=== PATIENT | female | born 1985 | race Hispanic/Latino ===

== ENCOUNTER 2019-05-18 13:40 | Emergency (ER) | payer BC, OTHER ==
--- NOTE | 2019-05-18 17:13 | EDPHYS ---
Physician Documentation [facility] Name: Mattie Spencer Age: 33 yrs Sex: Female : 1985 Arrival Date: 05/18/2019 Time: 13:42 Bed 13 Private MD: ED Physician Mateo Harrington HPI: 05/18 15:29 This 33 yrs old Female presents to ER via Wheelchair with complaints of Needs jm Urinary Catheter Replacement. 15:29 The patient presents with needs urinary catheter. jmm 15:29 Onset: The symptoms/episode began/occurred yesterday. jmm 15:29 Associated signs and symptoms: Pertinent negatives: fever, abdominal pain. This is a 33 jmm year old female that presents to the ED in need of a sesay catheter. Family states the patient pulled out the catheter last night. Denies abdominal pain, bleeding, or vomiting. . 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 - Ebola Screening: : Patient denies travel to an Ebola-affected area in the 21 days before illness onset. - Social history:: Smoking status: Patient/guardian denies using tobacco. ROS: 15:29 Constitutional: Negative for fever, chills, and weight loss, Cardiovascular: Negative jmm for chest pain, palpitations, and edema, Respiratory: Negative for shortness of breath, cough, wheezing, and pleuritic chest pain, Abdomen/GI: Negative for abdominal pain, nausea, vomiting, diarrhea, and constipation. 15:29 All other systems are negative. Exam: 15:29 Constitutional: This is a well developed, well nourished patient who is awake, alert, jmm and in no acute distress. Chest/axilla: Normal chest wall appearance and motion. Cardiovascular: Regular rate and rhythm. No edema appreciated Respiratory: Normal respirations, no respiratory distress appreciated Abdomen/GI: Non distended, soft 15:29 Head/Face: atraumatic. Eyes: EOMI, no conjunctival erythema appreciated ENT: Moist Mucus Membranes Neck: Trachea midline, Supple Back: Normal ROM Skin: General appearance color normal MS/ Extremity: Moves all extremities, no obvious deformities appreciated, no edema noted to the lower extremities Psych: Behavior is normal, Mood is normal, Patient is cooperative and pleasant Vital Signs: 14:25 BP 134 / 84; Pulse 66; Resp 18; Temp 98.5; Pulse Ox 96% on R/A; Weight 90.72 kg (R); aj1 Height 5 ft. 2 in. (157.48 cm) (R); Pain 0/10; 17:18 BP 137 / 78; Pulse 72; Resp 18; Temp 98.0; Pulse Ox 99% on R/A; ph 14:25 Body Mass Index 36.58 (90.72 kg, 157.48 cm) [facility] MDM: 15:29 Patient medically screened. [facility] 17:10 Data reviewed: vital signs, nurses notes. Counseling: I had a detailed discussion with dannie the patient and/or guardian regarding: the historical points, exam findings, and any diagnostic results supporting the discharge/admit diagnosis, the need for outpatient follow up, to return to the emergency department if symptoms worsen or persist or if there are any questions or concerns that arise at home. ED course: SESAY REPLACED BY RN. . 05/18 15:31 Order name: Sesay Leg Bag; Complete Time: 17:09 [facility] 05/18 15:31 Order name: Sesay; Complete Time: 17:09 [facility] Administered Medications: No medications were administered Disposition: 05/18/19 17:12 Discharged to Home. Impression: Encounter for fitting and adjustment of urinary device. - Condition is Stable. - Discharge Instructions: Sesay Catheter Care, Adult. - Medication Reconciliation Form, Thank You Letter, Antibiotic Education, Prescription Opioid Use form. - Follow up: Private Physician; When: 1 - 2 days; Reason: Recheck today's complaints, Continuance of care, Re-evaluation by your physician. Addendum: 05/20/2019 08:15 Co-signature as Attending Physician, Mateo Harrington MD I agree with the assessment and c sanchez plan of care. Signatures: Zora Berg, RN RN aj1 Mateo Harrington MD MD cha Mickail, Joel, PA PA Sweta Malcolm RN RN ph Corrections: (The following items were deleted from the chart) 05/18 17:19 17:12 05/18/2019 17:12 Discharged to Home. Impression: Encounter for fitting and ph adjustment of urinary device. Condition is Stable. Forms are Medication Reconciliation Form, Thank You Letter, Antibiotic Education, Prescription Opioid Use. Follow up: Private Physician; When: 1 - 2 days; Reason: Recheck today's complaints, Continuance of care, Re-evaluation by your physician. dannie
--- NOTE | 2019-05-18 17:13 | ER ---
Nurse's Notes [facility] Name: Mattie Spencer Age: 33 yrs Sex: Female : 1985 Arrival Date: 05/18/2019 Time: 13:42 Bed 13 Private MD: Diagnosis: Encounter for fitting and adjustment of urinary device Presentation: 05/18 14:20 Presenting complaint: She has a catheter for urine and she ripped it out, she needs a aj1 new one. Transition of care: patient was not received from another setting of care. Onset of symptoms was May 17, 2019. Risk Assessment: Do you want to hurt yourself or someone else? Patient reports no desire to harm self or others. Initial Sepsis Screen: Does the patient meet any 2 criteria? No. Patient's initial sepsis screen is negative. Does the patient have a suspected source of infection? No. Patient's initial sepsis screen is negative. Care prior to arrival: None. 14:20 Method Of Arrival: Wheelchair aj1 14:20 Acuity: ADAM 4 aj1 Triage Assessment: 14:20 General: Appears in no apparent distress. Behavior is calm. Pain: Denies pain. Neuro: aj1 Level of Consciousness is awake, alert. Cardiovascular: Patient's skin is warm and dry. Respiratory: Airway is patent Respiratory effort is even, unlabored, Respiratory pattern is regular, symmetrical. 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 - Ebola Screening: : Patient denies travel to an Ebola-affected area in the 21 days before illness onset. - Social history:: Smoking status: Patient/guardian denies using tobacco. Screenin:16 Abuse screen: Denies threats or abuse. Denies injuries from another. Nutritional ph screening: No deficits noted. Tuberculosis screening: No symptoms or risk factors identified. Fall Risk No fall in past 12 months (0 pts). Secondary diagnosis (15 points) impaired mobility, No IV (0 pts). Ambulatory Aid- None/Bed Rest/Nurse Assist (0 pts). Gait- Impaired (20 pts.). Mental Status- Oriented to own ability (0 pts). Total Watts Fall Scale indicates High Risk Score (45 or more points). Fall prevention measures have been instituted. Side Rails Up X 2 Placed Close to Nursing Station Frequent Obs/Assessments Occuring Family Present and informed to notify staff if the need to leave the bedside As available patient and family educated on Fall Prevention Program and Strategies. Assessment: 15:30 General: Appears in no apparent distress. comfortable, obese, Behavior is calm, ph cooperative, appropriate for age. Pain: Denies pain. Neuro: Level of Consciousness is awake, alert, obeys commands, Oriented to person, place, time, situation. Cardiovascular: Capillary refill < 3 seconds in bilateral fingers Patient's skin is warm and dry. Respiratory: Airway is patent Respiratory effort is even, unlabored, Respiratory pattern is regular, symmetrical. GI: No signs and/or symptoms were reported involving the gastrointestinal system. Derm: Skin is intact, Skin is pink, warm \\T\\ dry. 17:15 Reassessment: Patient appears in no apparent distress at this time. Patient and/or ph family updated on plan of care and expected duration. Pain level reassessed. Patient is alert, oriented x 3, equal unlabored respirations, skin warm/dry/pink. Pt d/c home w/ family. Vital Signs: 14:25 BP 134 / 84; Pulse 66; Resp 18; Temp 98.5; Pulse Ox 96% on R/A; Weight 90.72 kg (R); aj1 Height 5 ft. 2 in. (157.48 cm) (R); Pain 0/10; 17:18 BP 137 / 78; Pulse 72; Resp 18; Temp 98.0; Pulse Ox 99% on R/A; ph 14:25 Body Mass Index 36.58 (90.72 kg, 157.48 cm) aj1 ED Course: 13:42 Patient arrived in ED. as 14:24 Triage completed. aj1 14:25 Arm band placed on Patient placed in waiting room, Patient notified of wait time. [facility] 15:13 Tyrell Bliss PA is PHCP. [facility] 15:13 Mateo Harrington MD is Attending Physician. [facility] 15:25 Sweta Vera, JAMAL is Primary Nurse. ph 16:50 No provider procedures requiring assistance completed. Suarez cath inserted, using ph sterile technique, 16 Fr., by me, balloon inflated, to gravity drainage, other latex free catheter used. Patient did not have IV access during this emergency room visit. 17:18 Patient has correct armband on for positive identification. Call light in reach. Side ph rails up X2. Pulse ox on. NIBP on. Administered Medications: No medications were administered Outcome: 17:12 Discharge ordered by . dannie 17:19 Discharged to home via wheelchair, with family. ph 17:19 Condition: good 17:19 Discharge instructions given to patient, family, Instructed on discharge instructions, follow up and referral plans. Demonstrated understanding of instructions, follow-up care. 17:19 Patient left the ED. ph Signatures: Zora Berg, RN RN aj1 Tyrell Bliss PA PA jmm Martinez, Amelia as Hall, Patricia, RN RN ph
== END 2019-05-18 17:19 | disposition home or self-care (01) ==
LOC: ER 13:40
DX: Z46.6 Encounter for fitting and adjustment of urinary device (principal); Z91.040 Latex allergy status
CPT/HCPCS: 51702; 99284

== ENCOUNTER 2019-06-11 17:55 | Emergency (ER) | payer BC, OTHER ==
--- NOTE | 2019-06-11 20:33 | ER ---
Nurse's Notes [facility] Name: Mattie Spencer Age: 33 yrs Sex: Female : 1985 Arrival Date: 06/11/2019 Time: 18:08 Bed 26 Private MD: Diagnosis: Displacement of urinary (indwelling) catheter Presentation: 06/11 18:13 Presenting complaint: Child states: Her catheter came out about 2 days ago and she la1 needs a new one put in IT HAS TO BE SILICON, SHE IS ALLERGIC TO LATEX. It should be a 16FR. Transition of care: patient was not received from another setting of care. Onset of symptoms was June 11, 2019. Risk Assessment: Do you want to hurt yourself or someone else? Patient reports no desire to harm self or others. Initial Sepsis Screen: Does the patient meet any 2 criteria? No. Patient's initial sepsis screen is negative. Does the patient have a suspected source of infection? No. Patient's initial sepsis screen is negative. Care prior to arrival: None. 18:13 Method Of Arrival: Wheelchair la1 18:13 Acuity: ADAM 4 la1 Triage Assessment: 19:44 General: Appears in no apparent distress. comfortable, Behavior is calm, cooperative. cc3 Pain: Denies pain. Historical: - Allergies: 18:13 Latex, Natural Rubber; la1 - PMHx: 18:13 "gallbladder problems"; "Kidney problems"; "stomach problems"; la1 - Immunization history:: Adult Immunizations up to date. - Social history:: Smoking status: Patient/guardian denies using tobacco, Patient/guardian denies using alcohol, street drugs, The patient lives with spouse. - Ebola Screening: : No symptoms or risks identified at this time. - Family history:: not pertinent. Screenin:44 Abuse screen: Denies threats or abuse. Denies injuries from another. Nutritional cc3 screening: No deficits noted. Tuberculosis screening: No symptoms or risk factors identified. Fall Risk Ambulatory Aid- None/Bed Rest/Nurse Assist (0 pts). Gait- Impaired (20 pts.). Mental Status- Overestimates/Forgets Limitations (15 pts.). Assessment: 19:44 General: Appears in no apparent distress. comfortable, Behavior is calm, cooperative. cc3 Pain: Denies pain. Neuro: Level of Consciousness is awake, alert. Cardiovascular: Denies chest pain, Heart tones S1 S2 present Capillary refill < 3 seconds in bilateral fingers Patient's skin is warm and dry. Respiratory: Airway is patent Respiratory effort is even, unlabored, Respiratory pattern is regular, symmetrical. GI: Abdomen is round non-distended. : No signs and/or symptoms were reported regarding the genitourinary system. EENT: No signs and/or symptoms were reported regarding the EENT system. Derm: Skin is intact, is healthy with good turgor, Skin is pink, warm \\T\\ dry. normal. Musculoskeletal: Circulation, motion, and sensation intact. Range of motion: limited in bilateral lower limbs. 20:40 Reassessment: Patient appears in no apparent distress at this time. Patient and/or cc3 family updated on plan of care and expected duration. Pain level reassessed. Dr. Simmons checked the new catheter in place and discharged the patient home, no prescription given. No IV cannula in situ. Patient left ER vitally stable by wheelchair escorted by me and her sister. No valuables left in the patient's room. Vital Signs: 18:11 BP 135 / 100; Pulse 115; Resp 18; Temp 97.5; Pulse Ox 100% on R/A; la1 19:45 BP 131 / 101; Pulse 110; Resp 18 S; Pulse Ox 100% on R/A; cc3 20:30 BP 132 / 98; Pulse 108; Resp 17 S; Pulse Ox 100% on R/A; cc3 ED Course: 18:08 Patient arrived in ED. am2 18:13 Arm band placed on left wrist. la1 18:15 Triage completed. la1 19:38 Gumaro Simmons MD is Attending Physician. ma2 19:44 Ayla Barfield is Primary Nurse. cc3 19:44 Patient has correct armband on for positive identification. Placed in gown. Bed in low cc3 position. Call light in reach. Side rails up X 1. Pulse ox on. NIBP on. 20:00 Suarez cath inserted, using sterile technique, 16 Fr., by ky, balloon inflated, to cc3 gravity drainage, silicone. 20:40 No provider procedures requiring assistance completed. Patient did not have IV access cc3 during this emergency room visit. Administered Medications: No medications were administered Outcome: 20:33 Discharge ordered by . ma2 20:40 Discharged to home via wheelchair, with family. cc3 20:40 Condition: stable 20:40 Discharge instructions given to family, Instructed on discharge instructions, follow up and referral plans. Demonstrated understanding of instructions, follow-up care. 20:45 Patient left the ED. cc3 Signatures: Gilles Godfrey RN RN Niesha To Mohammad, MD MD ma2 Ayla Barfield cc3 Corrections: (The following items were deleted from the chart) 23:06 20:00 Suarez cath inserted, using sterile technique, 16 Fr., by ky, balloon inflated, to cc3 gravity drainage, cc3 23:09 20:40 Reassessment: Patient appears in no apparent distress at this time. Patient cc3 and/or family updated on plan of care and expected duration. Pain level reassessed. Dr. Simmons checked the new catheter in place and discharged the patient home, no prescription given. No IV cannula in situ. Patient left ER vitally stable by wheelchair escorted by me and her sister. No valuables left in the patient's room. cc3
--- NOTE | 2019-06-11 20:33 | EDPHYS ---
Physician Documentation [facility] Name: Mattie Spencer Age: 33 yrs Sex: Female : 1985 Arrival Date: 06/11/2019 Time: 18:08 Bed 26 Private MD: ED Physician Gumaro Simmons HPI: 06/11 20:31 This 33 yrs old Female presents to ER via Wheelchair with complaints of Needs ma2 Urinary Catheter Replacement. 20:31 Onset: The symptoms/episode began/occurred suddenly, 1 day(s) ago. Severity of ma2 symptoms: At their worst the symptoms were mild in the emergency department the symptoms are unchanged. The patient has experienced similar episodes in the past. Historical: - Allergies: 18:13 Latex, Natural Rubber; la1 - PMHx: 18:13 "gallbladder problems"; "Kidney problems"; "stomach problems"; la1 - Immunization history:: Adult Immunizations up to date. - Social history:: Smoking status: Patient/guardian denies using tobacco, Patient/guardian denies using alcohol, street drugs, The patient lives with spouse. - Ebola Screening: : No symptoms or risks identified at this time. - Family history:: not pertinent. ROS: 20:31 All other systems are negative. ma2 20:33 Neck: Negative for injury, pain, and swelling. ma2 Exam: 20:31 Constitutional: This is a well developed, well nourished patient who is awake, alert, ma2 and in no acute distress. Cardiovascular: Regular rate and rhythm with a normal S1 and S2. No gallops, murmurs, or rubs. Normal PMI, no JVD. No pulse deficits. Respiratory: Lungs have equal breath sounds bilaterally, clear to auscultation and percussion. No rales, rhonchi or wheezes noted. No increased work of breathing, no retractions or nasal flaring. Abdomen/GI: Soft, non-tender, with normal bowel sounds. No distension or tympany. No guarding or rebound. No evidence of tenderness throughout. Vital Signs: 18:11 BP 135 / 100; Pulse 115; Resp 18; Temp 97.5; Pulse Ox 100% on R/A; la1 19:45 BP 131 / 101; Pulse 110; Resp 18 S; Pulse Ox 100% on R/A; cc3 20:30 BP 132 / 98; Pulse 108; Resp 17 S; Pulse Ox 100% on R/A; cc3 MDM: 19:38 Patient medically screened. ma2 20:31 Differential Diagnosis dye placed in er. Data reviewed: vital signs, nurses notes. ma2 Counseling: I had a detailed discussion with the patient and/or guardian regarding: the historical points, exam findings, and any diagnostic results supporting the discharge/admit diagnosis, the presence of at least one elevated blood pressure reading (>120/80) during this emergency department visit, the need for outpatient follow up. Response to treatment: the patient's symptoms have resolved after treatment. 06/11 20:44 Order name: Dye; Complete Time: 20:44 cc3 Administered Medications: No medications were administered Disposition: 06/11/19 20:33 Discharged to Home. Impression: Displacement of urinary (indwelling) catheter. - Condition is Stable. - Discharge Instructions: Dye Catheter Care, Adult. - Medication Reconciliation Form, Thank You Letter, Antibiotic Education, Prescription Opioid Use form. - Follow up: Private Physician; When: Tomorrow; Reason: Continuance of care. Signatures: Gilles Godfrey RN RN la1 Gumaro Simmons MD MD ma2 Ayla Barfield cc3 Corrections: (The following items were deleted from the chart) 20:45 20:33 06/11/2019 20:33 Discharged to Home. Impression: Displacement of urinary cc3 (indwelling) catheter. Condition is Stable. Forms are Medication Reconciliation Form, Thank You Letter, Antibiotic Education, Prescription Opioid Use. Follow up: Private Physician; When: Tomorrow; Reason: Continuance of care. ma2
[2019-06-11 22:07] VITALS: BP 135/100; TEMP 97.5; O2SAT 100
== END 2019-06-11 20:45 | disposition home or self-care (01) ==
LOC: ER 17:55
DX: T83.021A Displacement of indwelling urethral catheter, initial encounter (principal); Z91.040 Latex allergy status
CPT/HCPCS: 51702; 99284

== ENCOUNTER 2019-06-12 20:32 | Inpatient (IN) | payer BC, OTHER ==
[2019-06-12] MEDS ORDERED: NA CHLORIDE 0.9% 3,000 ML ONE (21:10)
[2019-06-12] MEDS ORDERED: CEFTRIAXONE/SWI 1gm 1 GM/10 ML SYR ONE (21:10)
[2019-06-12 21:30] LABS: Absolute Lymphocytes (CBC) 2.2 K/uL (0.7-4.9); Basophils % 0.3 % (0-1.3); Hematocrit 37.2 % (36.0-45.0); Lymphocytes % 15.8 % (15.3-44.8); MPV 8.7 fL (7.6-11.3); RBC Red Blood Cell Count 4.26 M/uL (3.86-4.86)
[2019-06-12 21:34] LABS: Protime INR 1.31
[2019-06-12] MEDS ORDERED: ACETAMINOPHEN 500 MG TAB ONE (21:41)
[2019-06-12 22:04] LABS: ALT/SGPT 20 U/L (12-78); AST/SGOT 16 U/L (15-37); Albumin 2.9 g/dL (3.4-5.0); Alkaline Phosphatase 108 U/L (45-117); BUN Blood Urea Nitrogen 19 mg/dL (7-18); Bicarbonate 20 mmol/L (21-32); Bilirubin Direct 0.4 mg/dL (0-0.2); Bilirubin Total 1.3 mg/dL (0.2-1.0); CKMB Creatine Kinase MB < 1.0 ng/mL (0.3-3.6); Creatine Phosphokinase 60 U/L (26-192); Glucose Level 162 mg/dL (74-106); Lipase 162 U/L (73-393); Potassium 3.2 mmol/L (3.5-5.1); Sodium Level 140 mmol/L (136-145); Troponin (Emerg Dept Use Only) < 0.02 ng/mL (0.0-0.045)
[2019-06-12] MEDS ORDERED: DIPHENHYDRAMINE 50 MG/ML VIAL ONE (22:11)
[2019-06-12 23:19] LABS: Urine Culture Reflex Order NOT NEEDED
[2019-06-12 23:20] LABS: Urine Bacteria 20-50 /HPF (<20)
[2019-06-12 23:21] LABS: Urine Blood 3+ (NEG); Urine Glucose NEGATIVE (NEG); Urine Protein 1+ (NEG)
[2019-06-13 01:27] LABS: Potassium 2.6 mmol/L (3.5-5.1)
--- NOTE | 2019-06-13 01:48 | ER ---
Nurse's Notes [facility] Name: Mattie Spencer Age: 33 yrs Sex: Female : 1985 Arrival Date: 06/12/2019 Time: 20:35 Bed 5 Private MD: Diagnosis: Urinary tract infection, site not specified;Hypokalemia;Dehydration Presentation: 06/12 20:50 Presenting complaint: Sister reports pt was quiet and not being herself all day. Sister ea reports she took her temp about an hour ago and it was 102.3. Transition of care: patient was not received from another setting of care. Onset of symptoms was June 12, 2019. Risk Assessment: Do you want to hurt yourself or someone else? Patient reports no desire to harm self or others. Initial Sepsis Screen: Does the patient meet any 2 criteria? HR > 90 bpm. Care prior to arrival: None. 20:50 Method Of Arrival: Wheelchair ea 20:50 Acuity: ADAM 3 ea 21:00 Initial Sepsis Screen: Does the patient meet any 2 criteria? Temp <36.0*C (96.8*F)) or ca1 > 38.3*C (100.9*F). Does the patient have a suspected source of infection? Yes: Catheter related infection (Suarez/dialysis/PICC/central line). 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 - Social history:: Smoking status: Patient/guardian denies using tobacco. - Ebola Screening: : No symptoms or risks identified at this time. Screenin:52 Abuse screen: Denies threats or abuse. Nutritional screening: No deficits noted. ea Tuberculosis screening: No symptoms or risk factors identified. Fall Risk Secondary diagnosis (15 points) impaired mobility. 21:10 Fall Risk IV access (20 points). ca1 Assessment: 21:10 General: Appears in no apparent distress. comfortable, Behavior is calm, cooperative, ca1 appropriate for age. General: Reports fever for 0-12 hours. Pain: Denies pain. Neuro: Level of Consciousness is awake, alert, obeys commands, Oriented to person, place, time, situation, Appropriate for age. Cardiovascular: Heart tones S1 S2 present Capillary refill is > 3 seconds Patient's skin is warm and dry. Rhythm is sinus tachycardia. Respiratory: Airway is patent Respiratory effort is even, unlabored, Respiratory pattern is regular, symmetrical, Breath sounds are clear bilaterally. Denies cough. GI: Abdomen is round non-distended, Bowel sounds present X 4 quads. Abd is soft and non tender X 4 quads. Patient currently denies diarrhea, nausea, vomiting. : Suarez in place to gravity drainage Urine is clear. EENT: Denies nasal congestion. Derm: Skin is intact, is healthy with good turgor, Skin is pink, warm \\T\\ dry. Musculoskeletal: Circulation, motion, and sensation intact. Capillary refill < 3 seconds, Range of motion: limited in left hip and right hip. 22:10 Reassessment: PT c/o nausea and itching. Hives noted on R arm and face. Reaction to ca1 Rocephin. Notified provider. Meds given. 22:22 Reassessment: Patient appears in no apparent distress at this time. Patient and/or ca1 family updated on plan of care and expected duration. Pain level reassessed. Patient is alert, oriented x 3, equal unlabored respirations, skin warm/dry/pink. 23:00 Reassessment: Patient appears in no apparent distress at this time. Patient is alert, tr5 oriented x 3, equal unlabored respirations, skin warm/dry/pink. Pt appears to be resting in bed. Family at bedside. 06/13 00:00 Reassessment: Patient appears in no apparent distress at this time. No changes from tr5 previously documented assessment. Patient and/or family updated on plan of care and expected duration. Pain level reassessed. Patient is alert, oriented x 3, equal unlabored respirations, skin warm/dry/pink. 01:04 Reassessment: Patient appears in no apparent distress at this time. Patient and/or tr5 family updated on plan of care and expected duration. Pain level reassessed. Patient is alert, oriented x 3, equal unlabored respirations, skin warm/dry/pink. Vital Signs: 06/12 20:52 BP 127 / 83; Pulse 137; Resp 18; Temp 100.3; Pulse Ox 99% on R/A; Weight 92.08 kg; ea Height 5 ft. 3 in. (160.02 cm); 21:02 Temp 103.1(O); ca1 22:06 Temp 100.2(O); lt1 22:14 Temp 100.3(O); ca1 22:23 BP 121 / 79; Pulse 122; Resp 18 S; Pulse Ox 94% on R/A; ca1 23:00 BP 106 / 68; Pulse 111; Resp 14; Temp 99.8; Pulse Ox 96% on R/A; ca1 06/13 00:31 BP 102 / 73; Pulse 95; Resp 16; Pulse Ox 95% on R/A; tr5 06/12 20:52 Body Mass Index 35.96 (92.08 kg, 160.02 cm) ea ED Course: 06/12 20:35 Patient arrived in ED. cl3 20:52 Triage completed. ea 20:52 Enzo Hassan NP is PHCP. pm1 20:52 Prieto Howard MD is Attending Physician. pm1 20:53 Kerry Lewis, JAMAL is Primary Nurse. ca1 20:54 Patient has correct armband on for positive identification. Bed in low position. Call ea light in reach. Side rails up X 1. 20:54 Arm band placed on right wrist. Patient placed in an exam room, on a stretcher, on ea pulse oximetry. 21:10 Placed in gown. Side rails up X2. class c driver on. Pulse ox on. NIBP on. ca1 21:14 No provider procedures requiring assistance completed. Inserted saline lock: 20 gauge ca1 in right forearm, using aseptic technique. Blood collected. 21:14 Initial lab(s) drawn, by mo, sent to lab. First set of blood cultures drawn. ca1 21:50 Second set of blood cultures drawn by lab staff. ca1 21:55 Chest Single View XRAY In Process Unspecified. EDMS 06/13 01:25 Notified ED physician of a critical lab result(s). K 2.6. aa1 01:46 Jas Feliciano DO is Hospitalizing Provider. pm1 02:37 Patient admitted, IV remains in place. ak1 Administered Medications: 06/12 20:30 Drug: Tylenol 1000 mg Route: PO; ca1 22:14 Follow up: Temp 100.3 Oral; Response: No adverse reaction; Temperature is decreased ca1 21:20 Drug: NS 0.9% (30 ml/kg) 30 ml/kg Route: IV; Rate: bolus; Site: right forearm; ca1 21:55 Drug: Rocephin 1 grams Route: IV; Rate: calculated rate; Site: right forearm; ca1 22:14 Follow up: Response: Adverse reaction, Physician notified; IV Status: IVP per pharmacy ca1 protocol 22:14 Drug: Benadryl 25 mg Route: IVP; Site: right forearm; ca1 22:56 Follow up: Response: No adverse reaction; Marked relief of symptoms ca1 06/13 01:56 Drug: NS 0.9% 1000 ml Route: IV; Rate: 125 ml/hr; Site: right antecubital; tr5 02:02 Follow up: IV Status: Infusion continued upon admission ak1 01:57 Drug: Potassium Chloride 20 mEq Route: IV; Rate: calculated rate; Site: right tr5 antecubital; 02:02 Follow up: IV Status: Infusion continued upon admission ak1 01:57 Drug: Potassium Effervescent Tablet 50 mEq Route: PO; tr5 02:01 Follow up: Response: No adverse reaction ak1 02:07 Drug: Magnesium Sulfate 1 grams Route: IVPB; Infused Over: 1 hrs; Site: right forearm; ak1 02:21 Follow up: IV Status: Infusion continued upon admission ak1 Output: 02:50 Urine: 700ml (Suarez); Total: 700ml. ak1 Outcome: 01:47 Decision to Hospitalize by Provider. pm1 02:36 Admitted to Med/surg accompanied by stacy, via stretcher, room 213, with chart, Report ak1 called to Lila 02:36 Condition: stable 02:36 Instructed on the need for admit. 02:50 Patient left the ED. ak1 Signatures: Dispatcher [employer] EDMS Eveline Neff RN RN aa1 La Baker RN RN ak1 Enzo Hassan, AUTOMATION ENGINEERING TECHNICIAN AUTOMATION ENGINEERING TECHNICIAN pm1 Jeannine Branch RN RN ea Kerry Lewis RN RN ca1 Chawla, Meenakshi lt1 Kenton Gee RN RN tr5 Leroy Franco cl3 Corrections: (The following items were deleted from the chart) 06/12 21:03 21:00 Initial Sepsis Screen: Does the patient meet any 2 criteria? ca1 ca1 22:57 22:10 Reassessment: PT c/o nausea and itching. Hives noted on R arm and face. Notified ca1 provider. Meds given. ca1
--- NOTE | 2019-06-13 01:48 | EDPHYS ---
Physician Documentation [facility] Name: Mattie Spencer Age: 33 yrs Sex: Female : 1985 Arrival Date: 06/12/2019 Time: 20:35 Bed 5 Private MD: ED Physician Prieto Howard HPI: 06/12 23:40 This 33 yrs old Female presents to ER via Wheelchair with complaints of Fever. pm1 23:40 The patient reports fever, that was measured at 102.3 degrees Fahrenheit. Onset: The pm1 symptoms/episode began/occurred today. Modifying factors: indwelling dye catheter. Associated signs and symptoms: Pertinent negatives: abdominal pain, chills, cough, diarrhea, earache, headache, shortness of breath, vomiting. The patient has experienced similar episodes in the past, several times, but family does not know the last time she had one. 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 That's the reason she has a Dye in place. The patient has not recently seen a physician. 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 - Social history:: Smoking status: Patient/guardian denies using tobacco. - Ebola Screening: : No symptoms or risks identified at this time. ROS: 23:40 Eyes: Negative for injury, pain, redness, and discharge, ENT: Negative for injury, pm1 pain, and discharge, Neck: Negative for injury, pain, and swelling, Cardiovascular: Negative for chest pain, palpitations, and edema, Respiratory: Negative for shortness of breath, cough, wheezing, and pleuritic chest pain. 23:40 Abdomen/GI: Negative for abdominal pain, nausea, vomiting, diarrhea, and constipation, Back: Negative for injury and pain, : Negative for injury, bleeding, discharge, and swelling, MS/Extremity: Negative for injury and deformity, Skin: Negative for injury, rash, and discoloration, Neuro: Negative for headache, weakness, numbness, tingling, and seizure. 23:40 Constitutional: Positive for fever, Negative for poor PO intake. Exam: 23:40 Constitutional: This is a well developed, well nourished patient who is awake, alert, pm1 and in no acute distress. Head/Face: Normocephalic, atraumatic. Eyes: Pupils equal round and reactive to light, extra-ocular motions intact. Lids and lashes normal. Conjunctiva and sclera are non-icteric and not injected. Cornea within normal limits. Periorbital areas with no swelling, redness, or edema. ENT: Nares patent. No nasal discharge, no septal abnormalities noted. Tympanic membranes are normal and external auditory canals are clear. Oropharynx with no redness, swelling, or masses, exudates, or evidence of obstruction, uvula midline. Mucous membranes moist. Neck: Trachea midline, no thyromegaly or masses palpated, and no cervical lymphadenopathy. Supple, full range of motion without nuchal rigidity, or vertebral point tenderness. No Meningismus. Chest/axilla: Normal chest wall appearance and motion. Nontender with no deformity. No lesions are appreciated. Cardiovascular: Regular rate and rhythm with a normal S1 and S2. No gallops, murmurs, or rubs. Normal PMI, no JVD. No pulse deficits. Respiratory: Lungs have equal breath sounds bilaterally, clear to auscultation and percussion. No rales, rhonchi or wheezes noted. No increased work of breathing, no retractions or nasal flaring. Back: No spinal tenderness. No costovertebral tenderness. Full range of motion. 23:40 Skin: Warm, dry with normal turgor. Normal color with no rashes, no lesions, and no evidence of cellulitis. MS/ Extremity: Pulses equal, no cyanosis. Neurovascular intact. Full, normal range of motion. 23:40 Abdomen/GI: Inspection: obese Bowel sounds: normal, Palpation: abdomen is soft and non-tender, in all quadrants, mass, is not appreciated, rebound tenderness, is not appreciated. 23:40 Neuro: Orientation: baseline per family, Motor: is normal, moves all fours, Sensation: is normal, no obvious gross deficits. Vital Signs: 20:52 BP 127 / 83; Pulse 137; Resp 18; Temp 100.3; Pulse Ox 99% on R/A; Weight 92.08 kg; ea Height 5 ft. 3 in. (160.02 cm); 21:02 Temp 103.1(O); ca1 22:06 Temp 100.2(O); lt1 22:14 Temp 100.3(O); ca1 22:23 BP 121 / 79; Pulse 122; Resp 18 S; Pulse Ox 94% on R/A; ca1 23:00 BP 106 / 68; Pulse 111; Resp 14; Temp 99.8; Pulse Ox 96% on R/A; ca1 06/13 00:31 BP 102 / 73; Pulse 95; Resp 16; Pulse Ox 95% on R/A; tr5 06/12 20:52 Body Mass Index 35.96 (92.08 kg, 160.02 cm) ea MDM: 06/12 20:53 Patient medically screened. pm1 23:39 Data reviewed: vital signs. Data interpreted: Pulse oximetry: on room air is 96 %. pm1 Interpretation: normal. 06/13 01:32 Counseling: I had a detailed discussion with the patient and/or guardian regarding: the pm1 historical points, exam findings, and any diagnostic results supporting the discharge/admit diagnosis, lab results, the need for further work-up and treatment in the hospital. 06/12 21:01 Order name: Urine Culture pm1 06/12 21:01 Order name: Basic Metabolic Panel; Complete Time: 22:10 pm1 06/12 21:01 Order name: Blood Culture Adult (2) pm1 06/12 21:01 Order name: CBC with Diff; Complete Time: 21:44 pm1 06/12 21:01 Order name: Ckmb; Complete Time: 22:10 pm1 06/12 21:01 Order name: CPK; Complete Time: 22:10 pm1 06/12 21:01 Order name: Lactate; Complete Time: 22:10 pm1 06/12 21:01 Order name: LFT's; Complete Time: 22:10 pm1 06/12 21:01 Order name: Lipase; Complete Time: 22:10 pm1 06/12 21:01 Order name: Procalcitonin; Complete Time: 23:38 pm1 06/12 21:01 Order name: Protime (+inr); Complete Time: 21:44 pm1 06/12 21:01 Order name: Ptt, Activated; Complete Time: 21:44 pm1 06/12 21:01 Order name: Troponin (emerg Dept Use Only); Complete Time: 22:10 pm1 06/12 21:01 Order name: Urine Microscopic Only; Complete Time: 23:38 pm1 06/12 21:01 Order name: Urine Test (obtain specimen); Complete Time: 22:22 pm1 06/12 21:01 Order name: Chest Single View XRAY pm1 06/12 21:15 Order name: NOVA; Complete Time: 22:10 tr5 06/12 22:22 Order name: Urine Dipstick--Ancillary (enter results); Complete Time: 23:38 em1 06/13 00:24 Order name: BMP; Complete Time: 02:02 pm1 06/13 01:36 Order name: Magnesium; Complete Time: 02:02 EDMS 06/13 02:06 Order name: CT Abd/Pelvis - Without Contrast pm1 06/12 21:01 Order name: Accucheck; Complete Time: 21:13 pm1 06/12 21:01 Order name: Cardiac monitoring; Complete Time: 21:14 pm1 06/12 21:01 Order name: EKG - Nurse/Tech; Complete Time: 21:56 pm1 06/12 21:01 Order name: IV Saline Lock - Large Bore; Complete Time: 21:14 pm1 06/12 21:01 Order name: Labs collected and sent; Complete Time: 21:14 pm1 06/12 21:01 Order name: O2 Per Protocol; Complete Time: 21:14 pm1 06/12 21:01 Order name: O2 Sat Monitoring; Complete Time: 21:14 pm1 10 21:01 Order name: Urine Dipstick-Ancillary (obtain specimen); Complete Time: 22:21 pm1 Administered Medications: 06/12 20:30 Drug: Tylenol 1000 mg Route: PO; ca1 22:14 Follow up: Temp 100.3 Oral; Response: No adverse reaction; Temperature is decreased ca1 21:20 Drug: NS 0.9% (30 ml/kg) 30 ml/kg Route: IV; Rate: bolus; Site: right forearm; ca1 21:55 Drug: Rocephin 1 grams Route: IV; Rate: calculated rate; Site: right forearm; ca1 22:14 Follow up: Response: Adverse reaction, Physician notified; IV Status: IVP per pharmacy ca1 protocol 22:14 Drug: Benadryl 25 mg Route: IVP; Site: right forearm; ca1 22:56 Follow up: Response: No adverse reaction; Marked relief of symptoms ca1 06/13 01:56 Drug: NS 0.9% 1000 ml Route: IV; Rate: 125 ml/hr; Site: right antecubital; tr5 02:02 Follow up: IV Status: Infusion continued upon admission ak1 01:57 Drug: Potassium Chloride 20 mEq Route: IV; Rate: calculated rate; Site: right tr5 antecubital; 02:02 Follow up: IV Status: Infusion continued upon admission ak1 01:57 Drug: Potassium Effervescent Tablet 50 mEq Route: PO; tr5 02:01 Follow up: Response: No adverse reaction ak1 02:07 Drug: Magnesium Sulfate 1 grams Route: IVPB; Infused Over: 1 hrs; Site: right forearm; ak1 02:21 Follow up: IV Status: Infusion continued upon admission ak1 Disposition: 06/13/19 01:47 Hospitalization ordered by Jas Feliciano for Observation. Preliminary diagnosis are Urinary tract infection, site not specified, Hypokalemia, Dehydration. - Bed requested for Telemetry/MedSurg (observation). - Status is Observation. ak1 - Condition is Stable. - Problem is new. - Symptoms have improved. UTI on Admission? Yes Addendum: 06/22/2019 07:55 Co-signature as Attending Physician, Prieto Howard MD. g s Signatures: Dispatcher [employer] EDPA Eneida Mckeon RN RN La Baker RN RN ak1 Enzo Hassan, BERTHA LICENSED MARINE ENGINEER pm1 Jeannine Branch RN RN ea Starr, Gregory, MD MD Kerry Lewis RN RN ca1 Kenton Gee RN RN tr5 Corrections: (The following items were deleted from the chart) 06/13 01:36 01:35 MAGNESIUM+[id number].LAB.BRZ ordered. [facility] EDMS 02:15 01:47 Hospitalization Ordered by Jas Feliciano DO for Observation. Preliminary diagnosis is Urinary tract infection, site not specified; Hypokalemia; Dehydration. Bed requested for Telemetry/MedSurg (observation). Status is Observation. Condition is Stable. Problem is new. Symptoms have improved. UTI on Admission? Yes. pm1 02:50 02:15 06/13/2019 01:47 Hospitalization Ordered by Jas Feliciano DO for Observation. ak1 Preliminary diagnosis is Urinary tract infection, site not specified; Hypokalemia; Dehydration. Bed requested for Telemetry/MedSurg (observation). Status is Observation. Condition is Stable. Problem is new. Symptoms have improved. UTI on Admission? Yes. mw
[2019-06-13] MEDS ORDERED: POTASSIUM 25 MEQ EFFERV TAB ONE (01:51)
[2019-06-13] MEDS ORDERED: KCL 20 MEQ/100 mL IVPB 20 MEQ/100 ML BAG IV ONE (01:52)
[2019-06-13] MEDS ORDERED: NA CHLORIDE 0.9% 1,000 ML ONE (01:55)
[2019-06-13 02:01] LABS: Magnesium 1.3 mg/dL (1.8-2.4)
[2019-06-13] MEDS ORDERED: MAGNESIUM SULFATE 1 gm IVPB 1 GM/100 ML BAG IV ONE (02:06)
[2019-06-13] MEDS ORDERED: ACETAMINOPHEN 500 MG TAB PO PRN (02:42)
[2019-06-13] MEDS ORDERED: ONDANSETRON 4 MG/2 ML VIAL IV PRN (02:42)
[2019-06-13] MEDS: NACHLORIDE 0.45% 1,000 ML IV SCH (03:00)
[2019-06-13 03:13] VITALS: BMI 33.5
--- NOTE | 2019-06-13 03:34 | P.HP ---
Certification for Inpatient Patient admitted to: Observation With expected LOS: <2 Midnights Patient will require the following post-hospital care: None Practitioner: I am a practitioner with admitting privileges, knowledge of patient current condition, hospital course, and medical plan of care. Services: Services provided to patient in accordance with Admission requirements found in Title 42 Section 412.3 of the Code of Federal Regulations Patient History Date of Service: 06/13/19 Primary Care Provider: None Reason for admission: Fever History of Present Illness: 33-year-old female presented to the emergency room with fever. Patient with history of mental retardation, hypothyroidism, hypertension, diabetes mellitus type 2 non-insulin dependent, uterine cancer, chronic kidney disease, and recurrent UTI vesicoureteral reflux/chronic catheter. Patient had fever today. She was actually seen yesterday as her catheter had dislodged. It was replaced yesterday. Today she reported fever, chills. She not been eating well. Was brought in by family to further evaluate. Patient is mainly bed ridden. No abdominal pain noted. In the ER patient was initially tachycardic. Patient was febrile. Patient was given IV fluid bolus in the emergency room. Along with antibiotic therapy- Rocephin. She seemed to have an allergic reaction to Rocephin. This was discontinued. On lab white count 14.1, hemoglobin 12.2. Platelet count of 300. Sodium initially normal repeat 147. Potassium initially stable repeat 2.6. Chloride 119, bicarb 18. BUN of 17, creatinine 1.5 with a GFR of 38. Glucose 156. Lactic acid unremarkable. Pro calcitonin unremarkable. Blood and urine cultures obtained. CT scan revealed massive hydro ureter and hydronephrosis bilaterally. No stone identified. Chronic destructive changes to the pelvis noted. Patient admitted for further evaluation and treatment. When I saw the patient the ER, she appeared stable. She did not appear septic. Family at bedside. Patient answers questions appropriately. Allergies Unable to Assess Allergy (Unverified 06/13/19 02:24) Home medications list reviewed: Yes Home Medications: Levothyroxine [Synthroid] 75 mcg PO [id number] 06/13/19 Losartan Potassium [Cozaar] 25 mg PO DAILY 06/13/19 Sitagliptin Phos/Metformin HCl [Janumet Xr 100-1,000 mg Tablet] 1 tab PO DAILY 06/13/19 - Past Medical/Surgical History Diabetic: Yes -: Diabetes mellitus type 2, [id number] -: Hypertension -: Hypothyroidism -: Chronic renal disease -: vesicouteral reflux with chronic catheter -: History of multiple UTIs -: History of uterine cancer -: Patient bed ridden -: Hysterectomy -: Knee surgery -: Cholecystectomy Psychosocial/ Personal History: Patient lives at home with family. She is dependent on family. Patient bed ridden. - Family History Family History: Reviewed- Non-Contributory - Social History Smoking Status: Never smoker Alcohol use: No CD- Drugs: No Caffeine use: No Place of Residence: Home Review of Systems General: Fever, Chills, Weakness, Malaise, As per HPI Eyes: Unremarkable ENT: Unremarkable Respiratory: Unremarkable Cardiovascular: Unremarkable Gastrointestinal: Unremarkable Genitourinary: As per HPI Musculoskeletal: Unremarkable Integumentary: Unremarkable Neurological: Unremarkable Lymphatics: Unremarkable Physical Examination - Vital Signs Temperature: 99.8 F Blood Pressure: 105/58 Pulse: 86 Respirations: 16 Pulse Ox (%): 98 - Physical Exam General: Alert, In no apparent distress, Oriented x3, Cooperative HEENT: Atraumatic, Normocephalic, Other (Dry mucous membranes) Neck: Supple, No Thyromegaly Respiratory: Clear to auscultation bilaterally, Normal air movement Cardiovascular: Normal pulses, Regular rate/rhythm Gastrointestinal: Normal bowel sounds, Soft and benign, Non-distended, No tenderness, No masses, No rebound, No guarding Musculoskeletal: No erythema, No tenderness, No warmth Integumentary: No tenderness/swelling, No erythema, No warmth, No cyanosis Neurological: Normal speech, Normal strength at 5/5 x4 extr, Normal tone, Normal affect Urinary: Suarez catheter - Studies Laboratory Data (last 24 hrs) 06/13/19 01:34: Magnesium Cancelled 06/13/19 00:36: Sodium 147 H, Potassium 2.6 L*, BUN 17, Creatinine 1.55 H, Glucose 156 H, Magnesium 1.3 L* 06/12/19 21:14: PT 15.3 H, INR 1.31, APTT 32.1 06/12/19 21:14: WBC 14.1 H, Hgb 12.2, Hct 37.2, Plt Count 300 06/12/19 21:14: Sodium 140, Potassium 3.2 L, BUN 19 H, Creatinine 1.70 H, Glucose 162 H, Total Bilirubin 1.3 H, AST 16, ALT 20, Alkaline Phosphatase 108, Lipase 162 Assessment and Plan - Plan Impression: Fever, chills secondary to UTI complicated suspected vesicoureteral reflux with bilateral hydronephrosis/hydroureter and chronic catheter Acute on chronic renal disease stage III Dehydration, hypokalemia, hypernatremia secondary to above Diabetes mellitus type 2 [id number] Hypertension Hypothyroidism Mental retardation History of uterine cancer with prior hysterectomy 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 Patient not able to tolerate Rocephin. Will start IV Cipro. Will obtain blood and urine culture. Urine catheter was replaced yesterday. Continue with IV fluids. Will monitor address appropriately. CT scan reviewed with on-call radiologist. Patient likely with suspected vesicoureteral reflux. Bilateral hydronephrosis and hydroureter noted. Will consult Urology and Nephrology to further evaluate. Will obtain renal ultrasound to further address. Will provide DVT prophylaxis- Lovenox. Patient does not appear septic at this time. Condition is likely chronic in nature. Likely discharge in the next 48 hr with clinical improvement and urine culture results. Daytime hospitalist will continue her care. Acute on chronic renal disease stage III: Likely related to chronic UTI. Will hold diabetic and hypertensive medication. Patient likely taking metformin and Arb inhibitor. Nephrology consulted to further assess. Renal ultrasound ordered to further evaluate. Dehydration, hypokalemia, hypernatremia secondary to above: Will adjust IV fluids. Will recheck BMP later today for further adjustment. Electrolyte replacement in place. Diabetes mellitus type 2 [id number]-[id number]: Continue Accu-Cheks and sliding scale. Hold oral medication at this time due to renal disease. May need to make adjustments to her medication at discharge. Will check A1c. Hypertension: Will hold blood pressure medication at this time. Discontinue Arb inhibitor due to renal failure. Hypothyroidism: Will obtain tsh and free T4. Will continue with home medication. Mental retardation: This appears mild. Will monitor closely. Patient appropriate with questions answered. History of uterine cancer with prior hysterectomy: Family reports history of uterine cancer with prior hysterectomy. 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 CT reported chronic destructive changes to the pelvis. Discharge Plan: Home Plan to discharge in: 48 Hours - Advance Directives Does patient have a Living Will: No Does patient have a Durable POA for Healthcare: No - Code Status/Comfort Care Code Status Assessed: Yes (Patient is full code) Time Spent Managing Pts Care (In Minutes): 55
[2019-06-13] MEDS: INSULIN -REGULAR HUMAN 50 UNIT/0.5 ML ML SQ SCH ×4 (07:30→20:59)
--- NOTE | 2019-06-13 07:48 | CON ---
History Of Present Illness: Ms. Pretty is a 33-year-old female with a history of mental retardation, hypothyroidism, hypertension, diabetes type 2, non- insulin-dependent diabetes mellitus, uterine cancer, chronic kidney disease, recurrent UTI, chronic Suarez catheter. Apparently, she had a Suarez dislodged a few days ago. She may have become obstructed. Suarez catheter is not replaced, but CT scan shows bilateral moderate hydronephrosis down to the bladder. I am going to recommend we will leave the Suarez catheter in for drainage. We can monitor the hydro later, should resolve with the Suarez catheter, but I am suspecting most of her hydro came from bladder obstruction. When she lost her Suarez catheter, possible Suarez catheter was clogged. There is no stones seen. No other reasons for her hydro. Allergies: TO ROCEPHIN. Home Medications: Levothyroxine, losartan, metformin, Janumet. Past Medical History: As mentioned above, diabetes, hypertension, hypothyroid, chronic renal disease, possible reflux with __catheter, UTIs, uterine cancer, bedridden, mental retardation, hysterectomy, knee surgery, cholecystectomy. Psychosocial: Lives at home with family. Dependent family are bedridden. Family History: Noncontributory. Social History: Never smoked. No alcohol. No drug use. No caffeine use. Resides at home. Review of Systems: 10-point review of systems otherwise reviewed in the chart, unremarkable. She did have some fever and chills and malaise and was admitted for that. Physical Examination: Vital Signs: Her latest vital signs shows 99.8, 86, 18, 105/95, and 98% sat on room air. HEENT: Atraumatic, normocephalic. Patient is sleeping. Lungs: Clear. Respiratory: Clear. Gastrointestinal: Soft, benign. Musculoskeletal: No erythema, no warmth. Skin: No rashes. Neurologic: Intact. Urinary Suarez catheter draining clear urine. Laboratory Studies: From this morning shows a white count 14.1, H and H are 12 and 37, platelet count 300. Coagulation status normal. Chemistries show low potassium 2.6, sodium 147, chloride 119, carbon dioxide 18 , BUN 17, creatinine 1.55, GFR 38%. Estimated glucose 156, calcium 7.1, magnesium 1.3 and low. Impression And Plan: Possible neurogenic bladder. Mental retardation. Urinary retention for bilateral hydro, most likely cause from bladder obstruction, possibly due to when she lost her catheter or catheter may have been obstructed. Since the catheter has been replaced and urine is draining well now, we can monitor her renal function, see how it improves and also monitoring the hydro with renal ultrasound. If necessary, but I suspect just replacing catheter will help her to improve. SALENA Voice ID: [id number] Report ID: [id number] SHIRA
--- NOTE | 2019-06-13 08:26 | RAD REPORT ---
EXAM DESCRIPTION: [facility] Single View06/12/2019 9:55 pm CLINICAL HISTORY: Fever COMPARISON: none FINDINGS: The lungs appear clear of acute infiltrate. The heart is normal size IMPRESSION: No acute abnormalities displayed
[2019-06-13 08:45] LABS: Thyroid Stimulating Hormone 9.03 uIU/mL (0.360-3.740)
[2019-06-13] MEDS: ENOXAPARIN 40 MG/0.4 ML SQ SCH (09:01)
[2019-06-13] MEDS: Ciprofloxacin 200mg IV 200 MG/100 ML IV.SOLN. IV SCH ×2 (09:01→20:58)
[2019-06-13] MEDS: LEVOTHYROXINE SOD 0.075 MG TAB PO SCH (09:02)
--- NOTE | 2019-06-13 09:50 | RAD REPORT ---
EXAM DESCRIPTION: CT - Abdomen Pelvis Wo Contrast - 06/13/2019 3:11 am ADDENDUM #1 These findings were discussed with Dr. Feliciano on 06/13/2019 at 3:12 AM central time Electronically signed by: Lakshmi William MOORE 06/13/2019 3:19 AM CDT End of Addendum EXAM DESCRIPTION: CT abdomen and pelvis without intravenous contrast CLINICAL HISTORY: 33-year-old female with urinary tract infection TECHNIQUE: Axial CT imaging of the abdomen and pelvis was performed. Sagittal and coronal reconstr ucted images were then performed. The CT study is performed according to ALARA (as low as reasonably achievable) or ALARA/IMAGE GENTLY, with automatic adjustment of mA and/or kV according to patient siz e. Performed on: 06/13/2019 at 2:33 AM Comparison: None. FINDINGS: Lung bases: The lung bases are grossly clear. Liver: The liver is enlarged and measures 21 cm in craniocaudal dimension. No focal hepatic abnormali ties are appreciated on this unenhanced scan. Liver attenuation is within normal limits. Spleen: The spleen is top normal in size and is normal in configuration and attenuation. No focal spl enic abnormalities are appreciated on this unenhanced scan. Gallbladder and bile duct: The gallbladder is surgically absent. There is no biliary ductal dilatat ion. Pancreas: The pancreas is grossly normal in size and configuration. Adrenal Glands: The adrenal glands are normal in size and configuration. Kidneys: The kidneys are normal in size and configuration. There is marked bilateral hydronephrosis a nd hydroureter. There is no evidence of nephrolithiasis. No focal renal abnormalities are identified. Stomach: The stomach is grossly normal. There is no definite hiatal hernia. Bowel: The bowel gas pattern is non specific and non obstructive. Appendix: The appendix is not clearly visualized on this examination. Free air: There is no evidence of free air. Free fluid: There is no evidence of free fluid. Vasculature: The aorta is normal in caliber and contour. The inferior vena cava is grossly unremarkab le. Lymphadenopathy: There are prominent retroperitoneal lymph nodes. Evaluation is somewhat limited with out IV contrast. Bladder: The bladder is decompressed due to the presence of a Suarez catheter. Reproductive: The uterus is nonvisualized and is likely surgically absent. Bones: There are chronic destructive changes of the pelvis and hip joints bilaterally. Findings may b e related to a chronic infectious or inflammatory process or neurodegenerative process. Soft tissues: No focal soft tissue abnormalities are identified. IMPRESSION: 1. Marked bilateral hydronephrosis and hydroureter. No definite obstructing ureteral josef culi are identified on this examination. 2. Advanced chronic destructive changes of the pelvis and hip joints bilaterally which may be due to a chronic infectious or inflammatory process or neurodegenerative process. 3. Retroperitoneal lymphadenopathy. 4. Hepatomegaly. 5. Cholecystectomy and probable hysterectomy. Electronically signed by: Lakshmi Thomas DO 06/13/2019 3:00 AM CDT Due to temporary technical issues with the PACS/Fluency reporting system, reports are being signed by the in house radiologist as a courtesy to ensure prompt reporting. The interpreting radiologist is f ully responsible for the content of the report.
--- NOTE | 2019-06-13 11:39 | EKG ---
Test Date: 2019-06-12 Test Time: 21:52:09 Calculus Tutor: EDU MEASUREMENT RESULTS: Intervals: Rate: 119 RI: 138 QRSD: 80 QT: 326 QTc: 458 [place]: P: 28 RI: 138 QRS: 72 T: 10 INTERPRETIVE STATEMENTS: Sinus tachycardia Possible Right ventricular hypertrophy Septal infarct, age undetermined Abnormal ECG No previous ECG available for comparison Electronically Signed On 06-13-19 11:37:45 CDT by Dylon Martínez
[2019-06-13] MEDS ORDERED: BISACODYL E.C. 5 MG TAB PO PRN (11:54)
[2019-06-13 12:40] LABS: Potassium 3.7 mmol/L (3.5-5.1)
--- NOTE | 2019-06-13 13:43 | RAD REPORT ---
EXAM DESCRIPTION: US - Renal Ultrasound-Complete - 06/13/2019 1:29 pm CLINICAL HISTORY: . Acute renal injury COMPARISON: June 13, 2019 cat scan FINDINGS: The right kidney measures 10 cm with a normal echotexture. Cortical thinning. The left kidney measures 10 cm with a normal echotexture. Cortical thinning [id number] bilateral hydronephrosis Suarez catheter is present within a collapsed bladder. IMPRESSION: Moderate to marked bilateral hydronephrosis may be a chronic finding given the cortical thinning
[2019-06-13] MEDS ORDERED: POTASSIUM CL SA 10 MEQ TAB PO ONE (19:00)
--- NOTE | 2019-06-13 21:03 | CON ---
Date of Consultation: 06/13/2019 Reason For Consultation: Elevated BUN and creatinine. History Of Present Illness: All the information has been obtained from the record, as the patient is mentally challenged. This is a 33-year-old female with significant past medical history of hypothyr oidism, diabetes, uterine CA, recurrent UTI secondary to reflux and chronic catheter use. Patient ca me to the hospital complaining from fever and chills. Primary workup showed leukocytosis, elevation in creatinine 1.5, decline in the GFR. For that reason, patient was admitted. Primary workup showed bilateral hydronephrosis. Suarez has been exchanged and good urine output seen by Urology. Past Medical History: 1.Diabetes complicated with neuropathy and nephropathy. 2.Hypertension. 3.Hyperlipidemia. 4.Mental retardation. 5.Hypothyroidism. 6.Uterine cancer. Past Surgical History: Knee surgery, cholecystectomy, hysterectomy. Family History: Positive for hypertension. Social History: Not obtainable. Review of Systems: Not obtainable. Allergies: TO CEFTRIAXONE. Physical Examination: Vital Signs: When I saw the patient, blood pressure 132/66, pulse of 100, afebrile. Patient had a F oley, good urine output of 1400. Chest: Clear to auscultation. Heart: S1, S2. Regular rhythm. Abdomen: Soft, nontender. Extremities: Trace edema. Neurologic: Alert, on wheelchair. Laboratory Data: WBC 14.1, H and H of 12.2/37.2, platelets of 300. Sodium 146, potassium 3.7, bicar b 19, chloride 117, BUN 15, creatinine 1.4, calcium 8.1, magnesium of 2. TSH of 9. Urinalysis posit carolann for infection. CT has bilateral hydro. Microbiology still pending. Current Medications: The patient on include; Lovenox, ciprofloxacin, levothyroxine, bisacodyl. Home medications include; metformin, losartan, levothyroxine. Assessment And Plan: Acute kidney injury multifactorial secondary to obstructive uropathy, supported with the finding on the CT superimposed with losartan and toxic acute tubular necrosis secondary to urinary tract infection. 1.I agree with changing the Suarez. We will follow up kidney function. If kidney function improve, we will monitor. Otherwise, we will follow up with Urology. 2.Urinary tract infection, complicated. Continue current antibiotic. We will follow up culture, do se appropriate. 3.Hypertension, controlled, optimal with the presence of acute kidney injury. Hold ARB. 4.Hypernatremia. I agree with half-normal. DONNA/NIHARIKA Voice ID: [id number] Report ID: [id number]
[2019-06-14] MEDS: NACHLORIDE 0.45% 1,000 ML IV SCH ×3 (01:57→20:58)
[2019-06-14 06:01] LABS: Absolute Lymphocytes (CBC) 1.6 K/uL (0.7-4.9); Hematocrit 30.7 % (36.0-45.0); Lymphocytes % 20.6 % (15.3-44.8); MPV 9.1 fL (7.6-11.3); RBC Red Blood Cell Count 3.52 M/uL (3.86-4.86)
[2019-06-14] MEDS: LEVOTHYROXINE SOD 0.075 MG TAB PO SCH (06:14)
[2019-06-14 06:27] LABS: Albumin 2.3 g/dL (3.4-5.0); Bilirubin Total 0.7 mg/dL (0.2-1.0); Magnesium 1.7 mg/dL (1.8-2.4); Potassium 3.3 mmol/L (3.5-5.1); Protein, Total 6.6 g/dL (6.4-8.2)
[2019-06-14] MEDS: INSULIN -REGULAR HUMAN 50 UNIT/0.5 ML ML SQ SCH ×4 (07:30→20:55)
[2019-06-14] MEDS ORDERED: POTASSIUM CL SA 10 MEQ TAB PO ONE ×3 (09:00→21:00)
[2019-06-14] MEDS ORDERED: MAGNESIUM SULFATE 1 gm IVPB 1 GM/100 ML BAG IV ONE ×2 (09:00→11:48)
[2019-06-14] MEDS: Ciprofloxacin 200mg IV 200 MG/100 ML IV.SOLN. IV SCH (09:57)
[2019-06-14] MEDS: ENOXAPARIN 40 MG/0.4 ML SQ SCH (09:58)
[2019-06-14] MEDS ORDERED: POTASSIUM 25 MEQ EFFERV TAB PO ONE (11:48)
--- NOTE | 2019-06-14 13:33 | P.PN ---
Subjective Date of Service: 06/14/19 Primary Care Provider: None Chief Complaint: Fever Subjective: Improving Patient seen and examined at bedside. No family at bedside. Chart reviewed and case discussed with nursing staff. No acute events noted overnight. No complaints this morning. Review of Systems 10-point ROS is otherwise unremarkable Physical Examination - Vital Signs Temperature: 97.6 F Blood Pressure: 110/64 Pulse: 82 Respirations: 18 Pulse Ox (%): 97 - Physical Exam General: Alert, In no apparent distress HEENT: Atraumatic, PERRLA, EOMI Neck: Supple, JVD not distended Respiratory: Clear to auscultation bilaterally, Normal air movement Cardiovascular: Regular rate/rhythm, Normal S1 S2 Gastrointestinal: Normal bowel sounds, No tenderness Musculoskeletal: No tenderness Integumentary: No rashes Neurological: Normal speech, Normal tone, Normal affect Lymphatics: No axilla or inguinal lymphadenopathy - Studies Microbiology Data (last 24 hrs): 06/12/19 22:16 Catheterized Urine [place] Count - Final >100,000 CFU/ML. 06/12/19 22:16 Catheterized Urine - Final Escherichia Coli Esbl 06/12/19 21:50 Blood - Blood Anaerobic Blood Culture - Final Assessment And Plan - Plan UTI complicated suspected vesicoureteral reflux with bilateral hydronephrosis/ hydroureter and chronic catheter: -Patient not able to tolerate Rocephin. Started IV Cipro. UCx positive for ESBL. IV antibiotics adjusted to merrem 1 g Q8hr. She will need IV merrem x 2 weeks. -PICC line ordered Will obtain blood and urine culture. -Urine catheter was replaced -CT scan was reviewed with on-call radiologist. Patient likely with suspected vesicoureteral reflux. Bilateral hydronephrosis and hydroureter noted. -nephrology consulted, appreciate recommendations -Urology consulted, appreciate recommendations Acute on chronic renal disease stage III: Creatinine improved Likely related to chronic UTI. -Nephrology consulted to further assess. Dehydration, hypokalemia, hypernatremia secondary to above: -Will adjust IV fluids. -Electrolyte replacement in place. Diabetes mellitus type 2 [id number]: -Continue Accu-Cheks and sliding scale. Hold oral medication at this time due to renal disease. Hypertension: Will hold blood pressure medication at this time. Discontinue Arb inhibitor due to renal failure. Hypothyroidism: Will continue with home medication. Mental retardation: This appears mild. Will monitor closely. Patient appropriate with questions answered. History of uterine cancer with prior hysterectomy: Family reports history of uterine cancer with prior hysterectomy. 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 CT reported chronic destructive changes to the pelvis. DVT prophylaxis: Lovenox GI prophylaxis: None Diet: Heart healthy/diabetic Disposition: Pending symptomatic improvement, PICC line placement IV antibiotics set up.
[2019-06-14] MEDS ORDERED: Meropenem 1000 MG/VIAL IV SCH (17:00)
[2019-06-14] MEDS: Meropenem 1,000 MG in NA CHLORIDE 0.9% 100 ML IV SCH (17:05)
[2019-06-14 22:40] VITALS: O2SAT 98
[2019-06-15] MEDS: Meropenem 1,000 MG in NA CHLORIDE 0.9% 100 ML IV SCH ×3 (00:19→16:37)
[2019-06-15] MEDS: LEVOTHYROXINE SOD 0.075 MG TAB PO SCH (05:05)
[2019-06-15 06:30] LABS: Albumin 2.5 g/dL (3.4-5.0); Bilirubin Total 0.5 mg/dL (0.2-1.0); Magnesium 2.1 mg/dL (1.8-2.4); Potassium 4.1 mmol/L (3.5-5.1); Protein, Total 7.1 g/dL (6.4-8.2)
[2019-06-15] MEDS: INSULIN -REGULAR HUMAN 50 UNIT/0.5 ML ML SQ SCH ×3 (07:30→16:30)
[2019-06-15 07:46] LABS: Absolute Lymphocytes (CBC) 1.5 K/uL (0.7-4.9); Basophils % 1.2 % (0-1.3); Hematocrit 32.5 % (36.0-45.0); Lymphocytes % 25.4 % (15.3-44.8); MPV 8.8 fL (7.6-11.3); RBC Red Blood Cell Count 3.69 M/uL (3.86-4.86)
[2019-06-15] MEDS: NACHLORIDE 0.45% 1,000 ML IV SCH (09:38)
[2019-06-15] MEDS: ENOXAPARIN 40 MG/0.4 ML SQ SCH (09:39)
--- NOTE | 2019-06-15 12:35 | P.PN ---
Subjective Date of Service: 06/15/19 Primary Care Provider: None Chief Complaint: Fever Subjective: Improving Pt with SANTANA, found to have B/l Hydronephrosis today no new complaints Cr improved to 1.3 To continue in Merrem Cleared for discharge from nephrology point of view follow [facility] as an OP Physical Examination - Vital Signs Temperature: 97.2 F Blood Pressure: 107/75 Pulse: 70 Respirations: 18 Pulse Ox (%): 98 - Physical Exam General: Alert, In no apparent distress, Obese HEENT: Atraumatic Neck: Supple, Without JVD or thyroid abnormality Respiratory: Clear to auscultation bilaterally, Normal air movement Cardiovascular: No edema, Regular rate/rhythm, Normal S1 S2, No gallops, No rubs , No murmurs Gastrointestinal: Soft and benign Musculoskeletal: No swelling - Studies Microbiology Data (last 24 hrs): 06/12/19 22:16 Catheterized Urine [place] Count - Final >100,000 CFU/ML. 06/12/19 22:16 Catheterized Urine - Final Escherichia Coli Esbl Assessment And Plan - Plan SANTANA due to dehydration +/- Obstructive uropathy improving on IVF B/l Hydronephrosis Cont Suarez Urology on board UTI cont merrem DM as per primary HTN Bp borderline now off bP meds
--- NOTE | 2019-06-15 12:46 | P.PN ---
Subjective Date of Service: 06/15/19 Primary Care Provider: None Chief Complaint: Fever Subjective: No C/O voiced Patient seen and examined at bedside. No family at bedside. Chart reviewed and case discussed with nursing staff. No acute events noted overnight. No complaints this morning. Review of Systems 10-point ROS is otherwise unremarkable Physical Examination - Vital Signs Temperature: 97.2 F Blood Pressure: 107/75 Pulse: 70 Respirations: 18 Pulse Ox (%): 98 - Physical Exam General: Alert, In no apparent distress HEENT: Atraumatic, PERRLA, EOMI Neck: Supple, JVD not distended Respiratory: Clear to auscultation bilaterally, Normal air movement Cardiovascular: Regular rate/rhythm, Normal S1 S2 Gastrointestinal: Normal bowel sounds, No tenderness Musculoskeletal: No tenderness Integumentary: No rashes Neurological: Normal speech, Normal tone, Normal affect Lymphatics: No axilla or inguinal lymphadenopathy - Studies Microbiology Data (last 24 hrs): 06/12/19 22:16 Catheterized Urine [place] Count - Final >100,000 CFU/ML. 06/12/19 22:16 Catheterized Urine - Final Escherichia Coli Esbl Assessment And Plan - Plan UTI complicated suspected vesicoureteral reflux with bilateral hydronephrosis/ hydroureter and chronic catheter: -Patient not able to tolerate Rocephin. Started IV Cipro. UCx positive for ESBL. IV antibiotics adjusted to merrem 1 g Q8hr. She will need IV merrem x 2 weeks. -PICC line ; -urine culture positive for ESBL -Urine catheter was replaced -CT scan was reviewed with on-call radiologist. Patient likely with suspected vesicoureteral reflux. Bilateral hydronephrosis and hydroureter noted. -nephrology consulted, appreciate recommendations -Urology consulted, appreciate recommendations Acute on chronic renal disease stage III: Creatinine back to baseline Likely related to chronic UTI. -Nephrology consulted to further assess. Dehydration, hypokalemia, hypernatremia secondary to above: -Will adjust IV fluids. -Electrolyte replacement in place. Diabetes mellitus type 2 [id number]: -Continue Accu-Cheks and sliding scale. Hold oral medication at this time due to renal disease. Hypertension: Will hold blood pressure medication at this time. Discontinue Arb inhibitor due to renal failure. Hypothyroidism: Will continue with home medication. Mental retardation: This appears mild. Will monitor closely. Patient appropriate with questions answered. History of uterine cancer with prior hysterectomy: Family reports history of uterine cancer with prior hysterectomy. 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 CT reported chronic destructive changes to the pelvis. DVT prophylaxis: Lovenox GI prophylaxis: None Diet: Heart healthy/diabetic Disposition: Pending home IV antibiotics set up.
--- NOTE | 2019-06-15 17:23 | P.DS ---
Admission Date: 06/13/19 Discharge Date: 06/15/19 Primary Care Provider: None Reason for Admission: Fever Consultations: Nephrology Urology Brief History of Present Illness: 33-year-old female presented to the emergency room with fever. Patient with history of mental retardation, hypothyroidism, hypertension, diabetes mellitus type 2 non-insulin dependent, uterine cancer, chronic kidney disease, and recurrent UTI vesicoureteral reflux/chronic catheter. Patient had fever today. She was actually seen yesterday as her catheter had dislodged. It was replaced yesterday. Today she reported fever, chills. She not been eating well. Was brought in by family to further evaluate. Patient is mainly bed ridden. No abdominal pain noted. In the ER patient was initially tachycardic. Patient was febrile. Patient was given IV fluid bolus in the emergency room. Along with antibiotic therapy- Rocephin. She seemed to have an allergic reaction to Rocephin. This was discontinued. On lab white count 14.1, hemoglobin 12.2. Platelet count of 300. Sodium initially normal repeat 147. Potassium initially stable repeat 2.6. Chloride 119, bicarb 18. BUN of 17, creatinine 1.5 with a GFR of 38. Glucose 156. Lactic acid unremarkable. Pro calcitonin unremarkable. Blood and urine cultures obtained. CT scan revealed massive hydro ureter and hydronephrosis bilaterally. No stone identified. Chronic destructive changes to the pelvis noted. Patient admitted for further evaluation and treatment. When I saw the patient the ER, she appeared stable. She did not appear septic. Family at bedside. Patient answers questions appropriately. Hospital Course: Patient was admitted for UTI complicated by sick vesicoureteral reflux with bilateral hydronephrosis and hydroureter and chronic catheter. Urine Cultures were positive for E. coli, ESBL. Her antibiotics were adjusted to meropenem 1 g q. 8 for 2 weeks. A PICC line was placed and home health was set up for home IV antibiotics. Nephrology was also consulted, urology was also consulted. She was cleared for discharge by all specialists. She otherwise did well throughout the stay. Her diagnoses and treatment plan explained to her and she was understanding. She was then discharged home in a safe and stable manner Vital Signs/Physical Exam: Temp Pulse Resp BP Pulse Ox 97.2 F 70 18 107/75 98 06/15/19 12:46 06/15/19 12:46 06/15/19 12:46 06/15/19 12:46 06/15/19 12:46 General: Alert, In no apparent distress HEENT: Atraumatic, PERRLA, EOMI Neck: Supple, JVD not distended Respiratory: Clear to auscultation bilaterally, Normal air movement Cardiovascular: Regular rate/rhythm, Normal S1 S2 Gastrointestinal: Normal bowel sounds, No tenderness Musculoskeletal: No tenderness Integumentary: No rashes Neurological: Normal speech, Normal tone, Normal affect Lymphatics: No axilla or inguinal lymphadenopathy Laboratory Data at Discharge: WBC 5.9 K/uL (4.3-10.9) D 06/15/19 07:27 Hgb 10.7 g/dL (12.0-15.0) L 06/15/19 07:27 Hct 32.5 % (36.0-45.0) L 06/15/19 07:27 Plt Count 316 K/uL (152-406) 06/15/19 07:27 PT 15.3 SECONDS (9.5-12.5) H 06/12/19 21:14 INR 1.31 06/12/19 21:14 APTT 32.1 SECONDS (24.3-36.9) 06/12/19 21:14 Sodium 144 mmol/L (136-145) 06/15/19 05:31 Potassium 4.1 mmol/L (3.5-5.1) 06/15/19 05:31 BUN 10 mg/dL (7-18) 06/15/19 05:31 Creatinine 1.29 mg/dL (0.55-1.3) 06/15/19 05:31 Glucose 125 mg/dL (74-106) H 06/15/19 05:31 Magnesium 2.1 mg/dL (1.8-2.4) 06/15/19 05:31 Total Bilirubin 0.5 mg/dL (0.2-1.0) 06/15/19 05:31 AST 16 U/L (15-37) 06/15/19 05:31 ALT 20 U/L (12-78) 06/15/19 05:31 Alkaline Phosphatase 92 U/L (45-117) 06/15/19 05:31 Lipase 162 U/L (73-393) 06/12/19 21:14 Home Medications: Levothyroxine [Synthroid*] 75 mcg PO [id number] 06/13/19 Losartan Potassium [Cozaar*] 25 mg PO DAILY 06/13/19 Sitagliptin Phos/Metformin HCl [Janumet Xr 100-1,000 mg Tablet] 1 tab PO DAILY 06/13/19 Meropenem [Merrem*] 1,000 mg IV Q6HR 14 Days vial 06/15/19 New Medications: Meropenem [Merrem*] 1,000 mg IV Q6HR 14 Days vial Patient Discharge Instructions: Please follow up with your primary care physician in 2-3 days. Return to the ER for worsening symptoms. Diet: Regular Activity: Ad enid Followup: Sloane Chan MD [ACTIVE - CAN ADMIT] - Time spent managing pt's care (in minutes): 55
--- NOTE | 2019-06-15 19:02 | PN ---
Date of Progress Note: 06/14/2019 Subjective: The patient was admitted with acute kidney injury, obstructive uropathy, UTI. Suarez has been exchanged. Physical Examination: Vital Signs: Blood pressure 110/64, pulse of 82, afebrile. The patient had good urine output of 3800. Chest: Clear to auscultation. Heart: S1, S2. Regular. Abdomen: Soft, nontender. Extremities: No edema. Laboratory Data: WBC 7.9, H and H 10.6/30.7, platelets 280. Sodium 144, potassium 3.3, bicarb 22, BUN 12, creatinine 1.3, calcium 8, magnesium 1.7. Current Medications: The patient on include. 1. Tylenol. 2. Lovenox. 3. Meropenem. 4. Zofran. 5. Levothyroxine. 6. Normal saline at 50 per hour. Assessment And Plan: 1. Acute kidney injury secondary to obstructive uropathy, poor perfusion, acute tubular necrosis, superimposed with toxic acute tubular necrosis secondary to urinary tract infection, on the recovery. Currently slightly on the dehydration side secondary to postobstructive polydiuresis I am going to increase IV fluid to 100. We will monitor. 2. Hypokalemia and hypomagnesemia. We will supplement. 3. Urinary tract infection secondary to Escherichia coli multi-drug resistant. Agree with meropenem. We will follow up with primary. 4. Deconditioning. Follow up with current support. NATHAN Voice ID: [id number] Report ID: [id number] SHIRA
[2019-06-15 19:27] VITALS: BP 132/73; TEMP 97.5
--- NOTE | 2019-06-16 15:53 | RAD REPORT ---
EXAM DESCRIPTION: RAD - Chest Single View - 06/15/2019 7:06 pm CLINICAL HISTORY: Device placement PICC line placement IMPRESSION: PICC line with its tip in the distal superior vena cava
== END 2019-06-15 19:41 | disposition home health service (06) | DRG 689 ==
LOC: UNDODISIN → ER 20:32 → ERHOLD 06-13 02:30 → 2ND 06-13 02:38 → OBSVTOIN 06-13 11:19
PROVIDERS: ADMIT Family Medicine; ATTEND Family Medicine
PROC: 02HV33Z Insertion of Infusion Device into Superior Vena Cava, Percutaneous Approach (ICD-10-PCS; principal; 2019-06-15)
DX: N39.0 Urinary tract infection, site not specified (principal); N17.0 Acute kidney failure with tubular necrosis; E87.0 Hyperosmolality and hypernatremia; N13.4 Hydroureter; F79 Unspecified intellectual disabilities; N13.30 Unspecified hydronephrosis; E03.9 Hypothyroidism, unspecified; E11.22 Type 2 diabetes mellitus with diabetic chronic kidney disease; I12.9 Hypertensive chronic kidney disease with stage 1 through stage 4 chronic kidney disease, or unspecified chronic kidney disease; N18.3 Chronic kidney disease, stage 3 (moderate); E86.0 Dehydration; E87.6 Hypokalemia; N31.2 Flaccid neuropathic bladder, not elsewhere classified; E11.40 Type 2 diabetes mellitus with diabetic neuropathy, unspecified; E83.42 Hypomagnesemia; B96.20 Unspecified Escherichia coli [E. coli] as the cause of diseases classified elsewhere; Z85.42 Personal history of malignant neoplasm of other parts of uterus
CPT/HCPCS: 36415; 71045; 74176; 76770; 80048; 80053; 80076; 81003; 81015; 82550; 82553; 82962; 83036; 83605; 83690; 83735; 84132; 84145; 84439; 84443; 84484; 85025; 85610; 85730; 87040; 87077; 87086; 87088; 87186; 87205; 93005; 96365; 96375; 97161; 97530; 99285; J0696; J0744; J1650; J3475; J7030